=== PATIENT | female | born 1945 | race African-American/Black ===

== ENCOUNTER 2017-03-23 13:34 | Inpatient (IN) | payer OTHER ==
[~2017-03-23] VITALS: Ht 160 cm; Wt 60.4 kg
--- NOTE | ~2017-03-23 | EKG ---
[address] [place] [address] ELECTROCARDIOGRAM REPORT Name: MARCI LUJAN Room #: 170-16 ADM IN M.R.#: [id number] Admission: 03/23/17 Attend Phys: Tutu Hall MD Discharge: Date of : 41 Report #: [id number] THIS REPORT FOR: //name// [facility] ED Test Date: 2017-03-23 Test Time: 13:43:25 Pat Name: MARCI LUJAN Department: Room: 170 Gender: F Home Sales Consultant: NEIDA : 1945 Requested By: Lewis Blevins Order Number: [id number] MD: Sj Regan Measurements Intervals [place] Rate: 73 P: 87 GA: 161 QRS: 16 QRSD: 78 T: 109 QT: 402 QTc: 443 Interpretive Statements Sinus rhythm Probable LVH with secondary repol abnrm Anterior ST elevation, probably due to LVH No previous ECG available for comparison Electronically Signed On 03-23-2017 16:51:33 CDT by Sj Regan [email or web address] <ELECTRONICALLY SIGNED> By: Sj Regan MD 03/23/17 165 134 42 Sj Regan MD /MARIA INES
--- NOTE | ~2017-03-23 | EEG ---
[facility] [place] [address] ELECTROENCEPHALOGRAM Name: MARCI LUJAN Room #: 203-P [facility] IN M.R.#: [id number] Admission: 03/23/17 Attend Phys: Tutu Hall MD Discharge: 03/26/17 Date of : 41 Report #: [id number] THIS REPORT FOR: //name// CC: FAM unknown Tutu Hall DATE OF SERVICE: 03/26/2017 This patient is being evaluated for altered mental status. EEG was done by placing the electrodes by standard 10-20 system of electrode placement. Both referential and sequential montages were used for recording. Background activity in this patient's EEG is about 9 Hz and 30 microvolts. The patient appeared to be asleep during part of this EEG and that is associated with bilateral slowing and vertex sharp waves. Photic stimulation is unremarkable. IMPRESSION: This patient's EEG is intermixed with some moderate amount of slowing. That is a nonspecific finding which can occur with encephalopathy, effect of psychotropic medication, dementia, etc. Clinical correlation is recommended. Thank you very much for this referral. By: 5 1 Thien Lim MD /nt
--- NOTE | ~2017-03-23 | HC ---
[facility] [place] [address] CONSULTATION Name: MARCI LUJAN Room #: 203-P ADM IN .R.#: [id number] Admission: 03/23/17 Attend Phys: Tutu Hall MD Discharge: Date of : 41 Report #: [id number] THIS REPORT FOR: //name// CC: FAM unknown Tutu Hall DATE OF SERVICE: 03/24/2017 ATTENDING PHYSICIAN: Dr. Hall. REASON FOR CONSULTATION: End-stage renal disease. 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 A couple of months ago, she fell, had a cervical fracture. Has been in a neck collar, became more debilitated. Has now been to extended care facility, and dialyzing at [facility]. During or after dialysis, she states she became somewhat confused. Was brought to the Emergency Room and was found to have a urinary tract infection, and was admitted. She states that last night her confusion cleared. 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 PAST MEDICAL HISTORY: She has hypertension; diabetes with triopathy, including laser surgery, retinopathy and peripheral neuropathy. She had the previous CVA as mentioned, as well as the end-stage renal disease, cervical fracture and previous cholecystectomy. HOME MEDICATIONS: Include Aspirin 81 mg daily, Nexium 40 mg daily, hydralazine 100 mg t.i.d., nifedipine 60 mg daily, insulin, Renvela 1600 mg with meals, Remeron 15 mg at bedtime, Sensipar 30 mg daily. Dialysis, 3 days a week; Thursday, Thursday and Thursday; 3 hours and 15 minutes, on a 3 potassium bath. FAMILY HISTORY: Strongly positive for diabetes in mother. Also had end-stage renal disease, diabetic nephropathy, and was on dialysis. SOCIAL HISTORY: No cigarettes or alcohol. REVIEW OF SYSTEMS: GENERAL: Today, she is feeling reasonably well. EYES: She has really no vision in the right eye from her retinopathy; left eye is okay. ENT: Swallows okay. Denies mouth sores or ulcers. ENDOCRINE: Positive for diabetes. RESPIRATORY: Not short of breath. No pleuritic pain. CARDIAC: No chest pain, angina or palpitations or arrhythmias. [address] [address] CONSULTATION Name: MARCI LUJAN Room #: 203-P [facility] IN M.R.#: [id number] Admission: 03/23/17 Attend Phys: Tutu Hall MD Discharge: Date of : 41 Report #: [id number] GASTROINTESTINAL: Denies nausea, vomiting, diarrhea or bloody stools. GENITOURINARY: Does not make much urine. No dysuria at the current time. She did have a urinary infection on laboratory examination. NEUROLOGIC: Diffusely weak. She cannot walk. She can use her arms pretty well and can move her legs. PSYCHIATRIC: Denies depression or anxiety. NEUROLOGIC: She does have a little bit of confusion and loss of memory from the stroke. PHYSICAL EXAMINATION: GENERAL: This is a pleasant, reasonably well-appearing woman. She is in a hard collar, in bed. SKIN: Unremarkable. SKELETAL: Hard neck collar, as mentioned. HEENT: Extraocular movements are full. Vision is intact in the left eye, absent in the right. No scleral icterus. Mucous membranes moist. Tongue, buccal mucosa benign. Neck has a hard collar. CHEST: Clear to auscultation. HEART: Regular. ABDOMEN: Soft and nontender. No bruits, masses or organomegaly. EXTREMITIES: Show no peripheral edema. NEUROLOGIC: Shows numbness in the feet, weakness in the legs, although she can move them well. Pretty good strength in the arms left a little bit weaker than the right. LABORATORY DATA: Hemoglobin 9.5. White count 6.1, platelets 250. Urinalysis did show leukocyturia and bacteriuria. Sodium 135, potassium 5, chloride 100, bicarbonate 24, BUN 35, creatinine 3.6. ASSESSMENT AND PLAN: 1. Altered mental status. She got altered during the treatment. I wonder if she was hypotensive. She has had a previous stroke. Certainly makes her at risk for neurologic changes. She did have a urinary infection. This may or may not have anything to do with it. 2. Urinary tract infection. On ceftriaxone. 3. End-stage renal disease, on 3 times weekly dialysis; orders for tomorrow. 4. 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 5. History of cerebrovascular accident. 6. Status post cervical fracture, with hard collar on the neck. 7. History of hypertension. <ELECTRONICALLY SIGNED> By: Tex Elias MD 03/24/17 1155 [id number] Tex Elias MD /nt
[2017-03-23 13:34] VITALS: BP 154/55
[2017-03-23 14:23] LABS: ABSOLUTE NEUTROPHILS 4.9 thou/uL (1.4-8.2); BASOPHILS 0.6 % (0.0-2.0); EOSINOPHILS 2.5 % (0.0-3.0); HEMATOCRIT 30.8 % (37.0-47.0); HEMOGLOBIN 9.9 gm/dL (12.0-15.0); LYMPHOCYTES 16.1 % (24.0-44.0); MANUAL DIFF NO; MCH 28.5 pg (26.0-34.0); MCHC 32.1 g/dL (28.0-37.0); MCV 88.8 fL (80.0-100.0); MONOCYTES 7.2 % (1.0-8.0); PLATELET COUNT 269 thou/uL (150-400); POLYS 73.6 % (36.0-66.0); RBC 3.47 mil/uL (4.20-5.00); RDW 16.6 % (10.5-14.5); WBC 6.7 thou/uL (4.0-11.0)
[2017-03-23 14:31] LABS: ANION GAP 9 mmol/L (7-16); BUN 24 mg/dL (7-18); CALCIUM 9.1 mg/dL (8.5-10.1); CHLORIDE 99 mmol/L (98-107); CO2 27 mmol/L (21-32); CREATININE 2.9 mg/dL (0.6-1.0); GLUCOSE 173 mg/dL (74-106); POTASSIUM 4.2 mmol/L (3.5-5.1); SODIUM 135 mmol/L (136-145)
[2017-03-23 14:40] LABS: TROPONIN-I < 0.04 ng/mL (<0.04-0.07)
[2017-03-23 15:20] LABS: URINE BILIRUBIN NEGATIVE (Negative); URINE BLOOD 1+ (Negative); URINE COLOR YELLOW; URINE GLUCOSE-RANDOM* NEGATIVE (Negative); URINE KETONES NEGATIVE (Negative); URINE LEUKOCYTES-REFLEX 3+ (Negative); URINE PROTEIN (DIPSTICK) 2+ (Negative); URINE UROBILINOGEN 0.2 E.U./dl (0.2-1.0)
[2017-03-23 15:28] LABS: AMP/METHAMP Negative (Negative); BARBITURATES Negative (Negative); BENZODIAZEPINES Negative (Negative); COCAINE Negative (Negative); METHADONE Negative (Negative); OPIATES Negative (Negative); PCP Negative (Negative); THC Negative (Negative)
[2017-03-23 15:32] LABS: CASTS None Seen /LPF (None Seen); CRYSTALS None Seen /LPF (None Seen); SQUAMOUS None Seen /LPF (0-3); URINE RBC 0-2 Rare /HPF (0-2); URINE WBC-REFLEX >25 Many /HPF (0-5)
[2017-03-23 17:14] VITALS: BP 180/70
[2017-03-23 18:00] VITALS: BP 166/68
[2017-03-23 18:15] VITALS: BP 173/71
[2017-03-23] MEDS ORDERED: NEXIUM40 MG PO (19:42)
[2017-03-23] MEDS ORDERED: ASPIR 8181 MG PO (19:42)
[2017-03-23] MEDS ORDERED: ADALAT CC60 MG PO (19:43)
[2017-03-23] MEDS ORDERED: HYDRALAZINE 2525 MG PO (19:43)
[2017-03-23] MEDS ORDERED: LANTUS100 UNIT/M SUBQ (19:44)
[2017-03-23] MEDS ORDERED: RENVELA800 MG PO (19:45)
[2017-03-23] MEDS ORDERED: REMERON15 MG PO (19:45)
[2017-03-23] MEDS ORDERED: TYLENOL325 MG PO (22:29)
[2017-03-23 23:01] VITALS: BP 137/63
[2017-03-24 03:50] VITALS: BP 121/57
[2017-03-24 03:54] LABS: CALCIUM 9.4 mg/dL (8.5-10.1); CREATININE 3.6 mg/dL (0.6-1.0)
[2017-03-24 04:14] LABS: HEMATOCRIT 30.3 % (37.0-47.0); HEMOGLOBIN 9.5 gm/dL (12.0-15.0); MCH 28.5 pg (26.0-34.0); MCHC 31.4 g/dL (28.0-37.0); MCV 90.6 fL (80.0-100.0); RBC 3.35 mil/uL (4.20-5.00); RDW 17.3 % (10.5-14.5); WBC 6.1 thou/uL (4.0-11.0)
[2017-03-24 07:15] VITALS: BP 116/57
[2017-03-24 11:10] VITALS: BP 152/72
[2017-03-24 19:23] VITALS: BP 125/92
[2017-03-25 03:23] LABS: HEMATOCRIT 28.7 % (37.0-47.0); HEMOGLOBIN 9.3 gm/dL (12.0-15.0); MCH 29.2 pg (26.0-34.0); MCHC 32.3 g/dL (28.0-37.0); MCV 90.4 fL (80.0-100.0); RBC 3.17 mil/uL (4.20-5.00); WBC 6.4 thou/uL (4.0-11.0)
[2017-03-25 03:46] LABS: CALCIUM 9.3 mg/dL (8.5-10.1); POTASSIUM 5.9 mmol/L (3.5-5.1)
[2017-03-25 03:47] LABS: CREATININE 5.6 mg/dL (0.6-1.0)
[2017-03-25 05:29] VITALS: BP 149/52
[2017-03-25 07:35] VITALS: BP 153/64
[2017-03-25 10:59] VITALS: BP 149/64
[2017-03-25 11:03] LABS: FOLIC ACID 6.7 ng/mL (8.6-58.9)
[2017-03-25 15:31] VITALS: BP 125/57
[2017-03-25 20:18] VITALS: BP 156/70
[2017-03-26 02:45] LABS: HEMATOCRIT 30.4 % (37.0-47.0); HEMOGLOBIN 9.8 gm/dL (12.0-15.0); MCH 28.9 pg (26.0-34.0); MCHC 32.2 g/dL (28.0-37.0); MCV 89.6 fL (80.0-100.0); RBC 3.4 mil/uL (4.20-5.00)
[2017-03-26 02:49] LABS: CALCIUM 9.8 mg/dL (8.5-10.1)
[2017-03-26 03:00] LABS: CREATININE 3.2 mg/dL (0.6-1.0); POTASSIUM 4.2 mmol/L (3.5-5.1)
[2017-03-26 04:15] VITALS: BP 184/52
[2017-03-26 07:19] VITALS: BP 179/83
[2017-03-26 11:25] VITALS: BP 143/56
[2017-03-26] MEDS ORDERED: CEFPODOXIME PR200 M1 PO (13:05)
[2017-03-26 15:08] VITALS: BP 169/66
== END 2017-03-26 18:20 | DRG 689 ==
LOC: ER 13:34 → EDBD 13:34 → EROBS 15:02 → 2N 15:02
PROVIDERS: Emergency Medicine; Hospitalist; Internal Medicine; Psychiatry & Neurology Neurology
PROC: 5A1D00Z (ICD-10-PCS; principal; 2017-03-25)
DX: N39.0 Urinary tract infection, site not specified (principal); G92 Toxic encephalopathy; N18.6 End stage renal disease; I12.0 Hypertensive chronic kidney disease with stage 5 chronic kidney disease or end stage renal disease; R64 Cachexia; E11.22 Type 2 diabetes mellitus with diabetic chronic kidney disease; E11.319 Type 2 diabetes mellitus with unspecified diabetic retinopathy without macular edema; E78.5 Hyperlipidemia, unspecified; H54.41 Blindness, right eye, normal vision left eye; I25.10 Atherosclerotic heart disease of native coronary artery without angina pectoris; F03.90 Unspecified dementia, unspecified severity, without behavioral disturbance, psychotic disturbance, mood disturbance, and anxiety; E11.42 Type 2 diabetes mellitus with diabetic polyneuropathy; Z86.73 Personal history of transient ischemic attack (TIA), and cerebral infarction without residual deficits; Z99.2 Dependence on renal dialysis; Z87.81 Personal history of (healed) traumatic fracture; Z90.49 Acquired absence of other specified parts of digestive tract; Z79.82 Long term (current) use of aspirin; Z79.899 Other long term (current) drug therapy; Z83.3 Family history of diabetes mellitus; Z84.1 Family history of disorders of kidney and ureter; Z68.23 Body mass index [BMI] 23.0-23.9, adult
CPT/HCPCS: 10194; 32100

== ENCOUNTER 2018-02-03 17:25 | Emergency (ER) | payer OTHER ==
[~2018-02-03] VITALS: Ht 160 cm; Wt 77.1 kg
[~2018-02-03 17:25] MED LIST: ADALAT CC60 MG PO; ASPIR 8181 MG PO; CEFPODOXIME PR200 M1 PO; HYDRALAZINE 2525 MG PO; LANTUS100 UNIT/M SUBQ; NEXIUM40 MG PO; REMERON15 MG PO; RENVELA800 MG PO; TYLENOL325 MG PO
[2018-02-03] MEDS ORDERED: HYDROCORTISONE30 G9 RECTAL (19:17)
== END 2018-02-03 20:59 | disposition home or self-care (01) ==
LOC: ER 17:25
DX: K56.41 Fecal impaction (principal); K62.5 Hemorrhage of anus and rectum; I12.0 Hypertensive chronic kidney disease with stage 5 chronic kidney disease or end stage renal disease; E11.22 Type 2 diabetes mellitus with diabetic chronic kidney disease; N18.6 End stage renal disease; I63.9 Cerebral infarction, unspecified; Z99.2 Dependence on renal dialysis